=== PATIENT | male | born 1970 | race African-American/Black ===

== ENCOUNTER → 2019-03-24 | Day surgery (SDC) | payer BC ==
[~2019-03-24] MED LIST: PROPOFOL 20 ML ONE
[2019-03-24 08:45] VITALS: BMI 26.4
[2019-03-24 08:53] VITALS: TEMP 98.2
[2019-03-24 11:26] VITALS: BP 110/74; PULSE 77
--- NOTE | 2019-03-25 17:02 | PATH ---
Surgical Pathology Report Patient Name: PENELOPE PHILLIPS [facility]. Rec. #: [id number] /Age/Gender: 1970 (Age: 48) / M Account: [id number] Location: [facility] Taken: 03/24/2019 Received: 03/24/2019 Reported: 03/25/2019 Physicians: Michele Kowalski M.D. Specimen(s) Received LEFT COLON Clinical History Screening Postoperative diagnosis: Colon polyp Final Diagnosis COLON, LEFT, POLYP, BIOPSY: HYPERPLASTIC POLYP. Electronically Signed Elida Lozada M.D. Gross Description Received in formalin, labeled "biopsy polyp left colon" is a sandy, irregular portion of soft tissue measuring 0.4 cm. in greatest dimension. The specimen is submitted in toto in one cassette. 03/24/201903/24/2019
== END | disposition home or self-care (01) ==
LOC: FASU-ENDO 08:32
PROVIDERS: ATTEND Internal Medicine Gastroenterology
PROC: 0DBM8ZX Excision of Descending Colon, Via Natural or Artificial Opening Endoscopic, Diagnostic (ICD-10-PCS; principal; 2019-03-24 10:35)
DX: Z12.11 Encounter for screening for malignant neoplasm of colon (principal); K63.5 Polyp of colon
CPT/HCPCS: 88305-TC